=== PATIENT | female | born 1995 | race Caucasian/White ===

== ENCOUNTER → 2024-11-27 | Outpatient (REF) | payer OTHER | LOC: M PLALAB 15:09 | PROVIDERS: ATTEND Advanced Practice Midwife | DX: Z53.9 Procedure and treatment not carried out, unspecified reason (principal) ==

== ENCOUNTER → 2025-01-12 | Outpatient (CLI) | payer OTHER | LOC: M WHC 09:04 | PROVIDERS: ATTEND Advanced Practice Midwife | DX: O34.211 Maternal care for low transverse scar from previous cesarean delivery (principal) ==

== ENCOUNTER → 2025-02-25 | Outpatient (CLI) | payer OTHER ==
[2025-02-25 11:25] LABS: PLATELET COUNT, AUTOMATED 167 10^3/uL (150-450)
[2025-02-25 11:44] LABS: GLUCOSE CHALLENGE TEST 1 HOUR 66 MG/DL (LESS THAN 140)
[2025-02-25 12:17] LABS: Trichomonas vaginalis (AMP) NOT DETECTED (NEGATIVE)
[2025-02-25 12:20] LABS: HIV 1&2 SCREEN NEGATIVE (NEGATIVE)
[2025-02-25 12:27] LABS: HEPATITIS C VIRUS ABY INDEX < 0.02 INDEX (<0.8)
[2025-02-25 12:42] LABS: GC DNA AMPLIFICATION NEGATIVE (NEGATIVE)
== END ==
LOC: M PLALAB 08:24
PROVIDERS: ATTEND Nurse Practitioner Family
DX: Z34.80 Encounter for supervision of other normal pregnancy, unspecified trimester (principal)

== ENCOUNTER → 2025-02-27 | Outpatient (CLI) | payer OTHER | LOC: M RAD 13:29 | PROVIDERS: ATTEND Nurse Practitioner Family | DX: Z34.82 Encounter for supervision of other normal pregnancy, second trimester (principal); Z3A.25 25 weeks gestation of pregnancy ==

== ENCOUNTER → 2025-05-11 | Outpatient (REF) | payer OTHER ==
[~2025-05-11] MED LIST: PRENTAB53 PO
== END ==
LOC: M SFHCWAGY 12:52
PROVIDERS: ATTEND Nurse Practitioner Family
DX: Z34.93 Encounter for supervision of normal pregnancy, unspecified, third trimester (principal)

== ENCOUNTER 2025-05-12 10:00 | Inpatient (IN) | payer OTHER ==
[~2025-05-12] VITALS: Ht 157.5 cm; Wt 67.9 kg
[2025-05-12] MEDS ORDERED: PRENTAB53 PO (10:04)
[2025-06-01] VITALS (10 sets, daily range): BP systolic 93–118; BP diastolic 52–79; TEMP 97.8–97.9; O2SAT 97–100
[2025-06-01] MEDS: LR 1,000 ML IV SCH ×2 (05:05→10:00)
[2025-06-01] MEDS ORDERED: HOME MED LIST COMPLETE! XX SCH (05:20)
[2025-06-01 05:57] LABS: PLATELET COUNT, AUTOMATED 143 10^3/uL (150-450)
[2025-06-01 06:57] LABS: HEPATITIS C VIRUS ABY INDEX < 0.02 INDEX (<0.8)
[2025-06-01] MEDS ORDERED: dexAMETHasone 4 MG/ML 1 ML VIAL As Ordered ONE (07:01)
[2025-06-01] MEDS ORDERED: PHENYLephrine 500MCG 5ML (100MCG/ML) SYRINGE As Ordered ONE (07:01)
[2025-06-01] MEDS ORDERED: ONDANSETRON 4MG/2ML VIAL As Ordered ONE (07:01)
[2025-06-01] MEDS ORDERED: ACETAMINOPHEN 1000MG/100ML IV BAG As Ordered ONE (07:01)
[2025-06-01] MEDS ORDERED: OXYTOCIN 30UNITS IN 0.9% NaCl 500ML IV BAG IV ONE (07:01)
[2025-06-01] MEDS ORDERED: KETOROLAC 30 MG/ML 1 ML VIAL As Ordered ONE (07:02)
[2025-06-01] MEDS ORDERED: MORPHINE PRES-FREE INJ 10 MG/10 ML VIAL As Ordered ONE (07:13)
[2025-06-01] MEDS: BICITRA 30 ML SOLN UDC PO ONE (07:14)
[2025-06-01] MEDS: ceFAZolin SODIUM 2 GM in DEXTROSE 5% (D5W) ADV/MINI-BAG 50 ML IV ONE (07:14)
[2025-06-01 08:38] LABS: CORD GAS ABE A -2.0; CORD GAS ABE V -3.6; CORD GAS HCO3 A 24.4 MMOL/L; CORD GAS HCO3 V 19.9 MMOL/L; CORD GAS O2 SAT A < 15.0 %; CORD GAS O2 SAT V 63.2 %; CORD GAS PCO2 A 47.3 mmHg; CORD GAS PCO2 V 32.5 mmHg; CORD GAS PH A 7.330 UNITS; CORD GAS PH V 7.405 UNITS; CORD GAS PO2 V 23.2 mmHg; CORD GAS SBC V 20.6 MMOL/L; CORD GAS TCO2 A 25.8 MMOL/L; CORD GAS TCO2 V 20.9 MMOL/L
[2025-06-01 08:39] LABS: CORD GAS PO2 A < 10.0 mmHg
[2025-06-01] MEDS ORDERED: ONDANSETRON 4MG/2ML VIAL IV PRN ×2 (08:55→09:30)
[2025-06-01] MEDS ORDERED: RHOGAM 300MCG (1500IU) INJ IM SCH (08:55)
[2025-06-01] MEDS ORDERED: MOM 30 ML SUSPENSION UDC PO PRN (08:55)
[2025-06-01] MEDS ORDERED: SIMETHICONE 80MG CHEW TAB PO PRN (08:55)
[2025-06-01] MEDS: PRENATAL VITAMINS CHEWABLE TABLET PO SCH (09:00)
[2025-06-01] MEDS ORDERED: diphenhydrAMINE 50 MG/ML VIAL IV PRN (09:30)
[2025-06-01] MEDS: SLF 3 ML SYR IV SCH (09:30)
[2025-06-01] MEDS ORDERED: **NOTE PATIENT COMMENT** MISC XX SCH (09:30)
[2025-06-01] MEDS ORDERED: NALOXONE INJ 0.4 MG/1 ML VIAL IV PRN ×2 (09:30)
[2025-06-01 10:34] LABS: HIV 1&2 SCREEN NEGATIVE (NEGATIVE)
[2025-06-01] MEDS: DOCUSATE SODIUM 100 MG CAPSULE PO SCH (12:27)
[2025-06-01] MEDS: ACETAMINOPHEN 500 MG TAB PO PRN (12:28)
[2025-06-01] MEDS: KETOROLAC 30 MG/ML 1 ML VIAL IV SCH (14:07)
[2025-06-02] VITALS (7 sets, daily range): BP systolic 99–121; BP diastolic 55–67; TEMP 98.1–98.8; O2SAT 98
[2025-06-02 07:03] LABS: PLATELET COUNT, AUTOMATED 113 10^3/uL (150-450)
[2025-06-02] MEDS: IBUPROFEN 800 MG TAB PO SCH (12:38)
[2025-06-03 05:30] VITALS: BP 121/61; O2SAT 98
[2025-06-03] MEDS: MEASLES,MUMPS,RUBELLA VACCINE INJ (MMR-II) SC.IMMUN ONE (09:00)
[2025-06-03 10:00] VITALS: BP 121/71; O2SAT 97
[2025-06-03] MEDS: FLUZONE VACCINE TRI PF(25-26) 0.5ML SYRINGE IM.IMMUN ONE (11:39)
[2025-06-03] MEDS ORDERED: IBUPROFEN 800 MG TAB PO SCH (13:00)
== END 2025-06-03 12:18 | disposition home or self-care (01) | DRG 788 ==
LOC: M LDI 06-01 05:02 → EDSTATUS 06-01 07:30 → M OBS 06-01 10:08
PROVIDERS: ADMIT Obstetrics & Gynecology; ATTEND Obstetrics & Gynecology
PROC: 10D00Z1 Extraction of Products of Conception, Low, Open Approach (ICD-10-PCS; principal; 2025-06-01 07:30)
DX: O34.211 Maternal care for low transverse scar from previous cesarean delivery (principal); O32.1XX0 Maternal care for breech presentation, not applicable or unspecified; Z37.0 Single live birth; Z3A.39 39 weeks gestation of pregnancy